=== PATIENT | male | born 1955 | race Caucasian/White ===

== ENCOUNTER 2022-02-04 16:49 | Emergency (ER) | payer OTHER ==
[2022-02-04 17:32] VITALS: BP 114/73; PULSE 101; RESP 18; TEMP 97.6
[2022-02-04] MEDS ORDERED: SODIUM CHLORIDE 0.9% 1,000 ML IV STA (18:16)
--- NOTE | 2022-02-04 18:23 | ED ---
General Adult HPI - General Chief complaint: Recheck/Abnormal Lab/Rx Stated complaint: throat pain Time Seen by Provider: 02/04/22 18:16 Source: patient, RN notes reviewed Mode of arrival: ambulatory Limitations: no limitations - History of Present Illness Initial comments: Patient presents with dysphagia which has been progressive over the last month.Patient has increased difficulty swallowing both fluids and food. Some shortness of breath. Patient also had what his friend is currently syncopal episode. Although the patient states he did not go out completely. This occurred 3 days ago. No headache, no fever or chills, no changes in vision or hearing, , discomfort in the throat, no chest pain or shortness of breath, no abdominal pain, no nausea or vomiting, no changes in urination or bowel movements, no numbness or t ingling, no extremity pain, no skin rashes or lesions. - Related Data Allergies Allergy/AdvReac Type Severity Reaction Status Date / Time No Known Allergies Allergy Verified 02/04/22 17:32 Review of Systems ROS Statement: Those systems with pertinent positive or pertinent negative responses have been documented in the HPI. ROS Other: All systems not noted in ROS Statement are negative. Past Medical History Past Medical History: Hyperlipidemia, Hypertension Past Surgical History: Appendectomy, Cholecystectomy, Orthopedic Surgery Past Psychological History: No Psychological Hx Reported Smoking Status: Current every day smoker, Heavy tobacco smoker Past Alcohol Use History: Daily Past Drug Use History: Marijuana General Exam Limitations: no limitations General appearance: alert, in no apparent distress Head exam: Present: atraumatic, normocephalic, normal inspection Eye exam: Present: normal appearance, PERRL, EOMI. Absent: scleral icterus, conjunctival injection, periorbital swelling ENT exam: Present: normal exam, mucous membranes moist Neck exam: Present: normal inspection. Absent: tenderness, meningismus, lymphadenopathy Respiratory exam: Present: normal lung sounds bilaterally. Absent: respiratory distress, wheezes, rales, rhonchi, stridor Cardiovascular Exam: Present: regular rate, normal rhythm, normal heart sounds. Absent: systolic murmur, diastolic murmur, rubs, gallop, clicks GI/Abdominal exam: Present: soft, normal bowel sounds. Absent: distended, tenderness, guarding, rebound, rigid Extremities exam: Present: normal inspection, full ROM, normal capillary refill. Absent: tenderness, pedal edema, joint swelling, calf tenderness Back exam: Present: normal inspection Neurological exam: Present: alert, oriented X3, CN II-XII intact Psychiatric exam: Present: normal affect, normal mood Skin exam: Present: warm, dry, intact, normal color. Absent: rash Course Vital Signs 02/04/22 17:27 Temperature 97.6 F Pulse Rate 101 H Respiratory 18 Rate Blood Pressure 114/73 O2 Sat by Pulse 93 L Oximetry - Reevaluation(s) Reevaluation #1: 02/04/22 23:48 Patient's C-reactive protein elevated at 2.2, undetermined significance. Awaiting computed tomography scan. Reevaluation #2: 02/05/22 00:33 Medical record is reviewed Symptoms somewhat improved here in the emergency department. Patient in no respiratory distress at reevaluation. Still has a hoarse voice. No stridor. Patient is informed of results and questions answered Patient in no distress Medical Decision Making - Medical Decision Making this patient spent several hours in the emergency department waiting room before being given a room. Patient was in no respiratory distress on reevaluation. Patient does have a hoarse voice. There is no stridor. Computed tomography scan shows extensive edema of the hypopharynx including some edema of the epiglottis. Consistent with pharyngitis possible epiglottitis. I suspect this is noninfectious however I did order blood cultures. Patient given a dose of dexamethasone and a dose of ceftriaxone. Findings discussed with the patient. Discussed transfer. Patient consents to transfer. Ceftriaxone 1 g IV piggyback and dexamethasone 10 mg IV push given in the ED. The case was discussed in detail with ED attending physician. Presentation, findings, treatment plan discussed in detail. She also seen and assessed by the ED attending physician. Backend [employer] Dr. Orozco - Lab Data Result diagrams: 02/04/22 21:25 02/04/22 22:16 Lab Results 02/04/22 02/04/22 02/04/22 Range/Units 21:25 21:33 21:33 WBC 11.6 H (3.8-10.6) k/uL RBC 5.53 (4.30-5.90) m/uL Hgb 16.9 (13.0-17.5) gm/dL Hct 53.1 H (39.0-53.0) % MCV 96.0 (80.0-100.0) fL MCH 30.6 (25.0-35.0) pg MCHC 31.9 (31.0-37.0) g/dL RDW 13.1 (11.5-15.5) % Plt Count 410 (150-450) k/uL MPV 7.1 Neutrophils % 80 % Lymphocytes % 10 % Monocytes % 6 % Eosinophils % 2 % Basophils % 1 % Neutrophils # 9.3 H (1.3-7.7) k/uL Lymphocytes # 1.2 (1.0-4.8) k/uL Monocytes # 0.7 (0-1.0) k/uL Eosinophils # 0.2 (0-0.7) k/uL Basophils # 0.2 (0-0.2) k/uL ESR 10 (0-15) mm/hr Sodium (137-145) mmol/L Potassium (3.5-5.1) mmol/L Chloride (98-107) mmol/L Carbon Dioxide (22-30) mmol/L Anion Gap mmol/L BUN (9-20) mg/dL Creatinine (0.66-1.25) mg/dL Est GFR (CKD-EPI)AfAm (>60 ml/min/1.73 sqM) Est GFR (CKD-EPI)NonAf (>60 ml/min/1.73 sqM) Glucose (74-99) mg/dL Plasma Lactic Acid Gaston 1.1 (0.7-2.0) mmol/L Calcium (8.4-10.2) mg/dL Total Bilirubin (0.2-1.3) mg/dL AST (17-59) U/L ALT (4-49) U/L Alkaline Phosphatase (38-126) U/L C-Reactive Protein (<1.0) mg/dL Total Protein (6.3-8.2) g/dL Albumin (3.5-5.0) g/dL 02/04/22 Range/Units 22:16 WBC (3.8-10.6) k/uL RBC (4.30-5.90) m/uL Hgb (13.0-17.5) gm/dL Hct (39.0-53.0) % MCV (80.0-100.0) fL MCH (25.0-35.0) pg MCHC (31.0-37.0) g/dL RDW (11.5-15.5) % Plt Count (150-450) k/uL MPV Neutrophils % % Lymphocytes % % Monocytes % % Eosinophils % % Basophils % % Neutrophils # (1.3-7.7) k/uL Lymphocytes # (1.0-4.8) k/uL Monocytes # (0-1.0) k/uL Eosinophils # (0-0.7) k/uL Basophils # (0-0.2) k/uL ESR (0-15) mm/hr Sodium 135 L (137-145) mmol/L Potassium 4.4 (3.5-5.1) mmol/L Chloride 101 (98-107) mmol/L Carbon Dioxide 30 (22-30) mmol/L Anion Gap 4 mmol/L BUN 16 (9-20) mg/dL Creatinine 0.78 (0.66-1.25) mg/dL Est GFR (CKD-EPI)AfAm >90 (>60 ml/min/1.73 sqM) Est GFR (CKD-EPI)NonAf >90 (>60 ml/min/1.73 sqM) Glucose 90 (74-99) mg/dL Plasma Lactic Acid Gaston (0.7-2.0) mmol/L Calcium 8.6 (8.4-10.2) mg/dL Total Bilirubin 0.4 (0.2-1.3) mg/dL AST 17 (17-59) U/L ALT 12 (4-49) U/L Alkaline Phosphatase 86 (38-126) U/L C-Reactive Protein 2.2 H (<1.0) mg/dL Total Protein 6.7 (6.3-8.2) g/dL Albumin 3.7 (3.5-5.0) g/dL - Radiology Data Radiology results: report reviewed, image reviewed Disposition Clinical Impression: Pharyngitis, Epiglottitis, Dysphagia, Hoarse voice quality, Cigarette smoker Disposition: OTHER INSTITUTION NOT DEFINED Condition: Fair Is patient prescribed a controlled substance at d/c from ED?: No Referrals: Sammy Reyes DO [Primary Care Provider] - 1-2 days Time of Disposition: 00:36 - Out of Hospital Transfer - Req. Specs Out of Hospital Transfer - Requested Specifics: Other Emergency Center ([facility] center Dr. Donald
[2022-02-04 21:44] LABS: Basophils # (A) 0.2 k/uL (0-0.2); Basophils % (A) 1 %; Eosinophils # (A) 0.2 k/uL (0-0.7); Eosinophils % (A) 2 %; HCT 53.1 % (39.0-53.0); HGB 16.9 gm/dL (13.0-17.5); Lymphocytes # (A) 1.2 k/uL (1.0-4.8); Lymphocytes % (A) 10 %; MCH 30.6 pg (25.0-35.0); MCHC 31.9 g/dL (31.0-37.0); Mean Platelet Volume 7.1; Monocytes # (A) 0.7 k/uL (0-1.0); Monocytes % (A) 6 %; Neutrophils # (A) 9.3 k/uL (1.3-7.7); Neutrophils % (A) 80 %; Platelet Count 410 k/uL (150-450); RBC 5.53 m/uL (4.30-5.90); RDW 13.1 % (11.5-15.5); WBC 11.6 k/uL (3.8-10.6)
[2022-02-04 23:23] LABS: ALT 12 U/L (4-49); AST 17 U/L (17-59); African American GFR (CKD) >90 (>60 ml/min/1.73 sqM); Albumin 3.7 g/dL (3.5-5.0); Alkaline Phosphatase 86 U/L (38-126); Anion Gap 4 mmol/L; Blood Urea Nitrogen 16 mg/dL (9-20); C Reactive Protein 2.2 mg/dL (<1.0); Calcium 8.6 mg/dL (8.4-10.2); Carbon Dioxide 30 mmol/L (22-30); Chloride 101 mmol/L (98-107); Glucose 90 mg/dL (74-99); Non-African American GFR(CKD) >90 (>60 ml/min/1.73 sqM); Potassium 4.4 mmol/L (3.5-5.1); Sodium 135 mmol/L (137-145); Total Bilirubin 0.4 mg/dL (0.2-1.3); Total Protein 6.7 g/dL (6.3-8.2)
--- NOTE | 2022-02-05 00:08 | CT ---
EXAMINATION TYPE: CT neck chest w con DATE OF EXAM: 02/04/2022 COMPARISON: None HISTORY: pain CT DLP: 787.3 mGycm Automated exposure control for dose reduction was used. CONTRAST: Performed with IV Contrast, patient injected with 100 mL of Isovue 300. Images obtained from the thoracic inlet to the diaphragm with IV contrast. There are images obtained from the thoracic inlet to the top of the orbits with IV contrast. FINDINGS: The lungs are clear of infiltrate. No pleural effusion or pneumothorax. No mediastinal adenopathy. Th ere is emphysematous bulla in the anterior left upper lobe. There are no hilar masses. Thoracic esoph michel has normal size. Aortic arch is intact. There is normal branching pattern of the great vessels. The upper abdominal so ft tissues are intact. There are clips from cholecystectomy. Thyroid gland is symmetric. There is irregular thickening of the mucosa in the hypopharynx bilaterall y. There is narrowing of the airway. This measures up to 16 mm. The epiglottis shows some thickening. The tongue is intact. The tonsils and adenoids are within normal limits. There is some thickening of the soft palate. The maxillary sinuses are normally aerated. No evidence of orbital mass. Nasal bone is intact. The parotid glands are symmetric. Submandibular salivary glands are symmetric. No evidence of any sof t tissue air. There are some anterior triangle cervical lymph nodes up to 1.5 cm. There is narrowing of the C5-6 and C6-7 disc spaces. IMPRESSION: There is extensive bilateral edema of the hypopharynx. There is also some thickening of the epiglotti s and this is consistent with epiglottitis and pharyngitis. Malignant tumor not excluded. Follow-up i s recommended. There is significant narrowing of the airway. Exam findings were discussed with emerge ncy room attending staff at 12:10 AM. No significant abnormality demonstrated within the chest.
[2022-02-05] MEDS ORDERED: DEXAMETHASONE SOD PHOSPHATE 10 MG/ML 1 ML VIAL IVP STA (00:20)
== END 2022-02-05 01:17 | disposition other institution (70) ==
LOC: EC 16:49
DX: R13.10 Dysphagia, unspecified (principal); J05.10 Acute epiglottitis without obstruction; J02.9 Acute pharyngitis, unspecified; E78.5 Hyperlipidemia, unspecified; I10 Essential (primary) hypertension; F17.209 Nicotine dependence, unspecified, with unspecified nicotine-induced disorders
CPT/HCPCS: 36415 ×2; 80053; 85652; 83605; 85025; 86140; 87040; 70491; 71260; 99285; 96365; 96375; J1100; J0696; Q9967